=== PATIENT | female | born 1985 | race Caucasian/White ===

== ENCOUNTER 2016-11-14 12:38 | Emergency (ER) | payer BC, MEDICAID ==
[~2016-11-14] VITALS: Ht 165.1 cm; Wt 60.0 kg
[2016-11-14 12:40] VITALS: Ht 165.1 cm; Wt 60.0 kg
--- NOTE | 2016-11-14 13:15 | ERD ---
ER Documentation Chief Complaint Date/Time DATE: 11/14/16 TIME: 13:09 Chief Complaint constipation x 3 days with abdominal pain HPI This is a 31 year-old female who presents to emergency department today complaining of abdominal pain and constipation for the past 3 days. States she also has some rectal pain. Patient states that 5 days ago at [facility] she had a cyst removed from her ovaries and has a scar. Denies any nausea vomiting, fevers or chills, dysuria. ROS All systems reviewed and are negative except as per history of present illness. Medications Home Meds Active Scripts Glycerin* (Glycerin (Adult)*) 1 Each Supp.rect, 1 EACH FL DAILY Y for CONSTIPATION for 10 Days, SUPP.RECT Prov:ERNESTO BRUCE PA-C 11/14/16 Magnesium Citrate* (Citroma*) 300 Ml Soln, 300 ML PO DAILY, #1 BOTTLE Prov:ERNESTO BRUCE PA-C 11/14/16 Polyethylene Glycol* (Miralax*) 17 Gm Powd.pack, 17 GM PO DAILY, #30 Prov:ERNESTO BRUCE PA-C 11/14/16 Allergies Allergies: Coded Allergies: No Known Allergy (Unverified , 11/14/16) PMhx/Soc History of Surgery: Yes (4 days s/p removal of ovarian cyst) Anesthesia Reaction: No Hx Neurological Disorder: No Hx Respiratory Disorders: No Hx Cardiac Disorders: No Hx Psychiatric Problems: No Hx Miscellaneous Medical Probl: No Hx Alcohol Use: No Hx Substance Use: No Hx Tobacco Use: No Smoking Status: Never smoker Physical Exam Vitals Vital Signs Date Time Temp Pulse Resp B/P Pulse Ox O2 Delivery O2 Flow Rate FiO2 11/14/16 12:40 98.5 100 20 120/79 100 Physical Exam Const: No acute distress Head: Atraumatic Eyes: Normal Conjunctiva ENT: Normal External Ears, Nose and Mouth. Neck: Full range of motion..~ No meningismus. Resp: Clear to auscultation bilaterally Cardio: Regular rate and rhythm, no murmurs Abd: Soft, diffuse abdominal tenderness non distended. Normal bowel sounds. Evidence of scar with kevin placed. No erythema or warmth. No drainage noted. Skin: Evidence of scar with kevin placed. No erythema or warmth. No drainage noted. Back: No midline or flank tenderness Ext: No cyanosis, or edema Neur: Awake and alert Psych: Normal Mood and Affect Results 24 hrs Laboratory Tests Test 11/14/16 13:18 Bedside Urine Blood Trace-intact Bedside Urine Glucose (UA) Negative Bedside Urine Ketones (LAB) Negative Bedside Urine Leukocyte Esterase (L Negative Bedside Urine Nitrite (LAB) Negative Bedside Urine Protein (LAB) Negative Bedside Urine pH (LAB) 7.5 Current Medications Medications (Trade) Dose Ordered Sig/Tony Route PRN Reason Start Time Stop Time Status Last Admin Dose Admin Glycerin (Glycerin (Adult)) 1 supp ONCE ONCE FL 11/14/16 13:30 11/14/16 13:31 DC DIAGNOSTIC IMAGING REPORT Patient: OSIEL MAN : 1985 Age: 31 Sex: F MR #: [id number] DOS: 11/14/16 0000 Ordering MD: ERNESTO BRUCE PA-C Location: [facility] Room/Bed: PROCEDURE: XR Abdomen. CLINICAL INDICATION: Abdominal pain status post surgery with constipation TECHNIQUE: AP abdomen x-ray. COMPARISON: None FINDINGS: Nonspecific bowel gas pattern with a moderate amount of stool within the colon. There are no abnormal calcifications overlying the urinary tracts. The osseus structures are unremarkable. Surgical kevin are present in the lower abdomen consistent with the patient's surgical history. IMPRESSION: Nonobstructive bowel gas pattern. Moderate stool in the colon RPTAT: QQ .Sebastien Al MD, MD Date Time Electronically viewed and signed by .Sebastien Al MD, MD on 11/14/2016 13:42 .M/ CC: ERNESTO BRUCE PA-C Procedures/MDM This is a 31-year-old female who presents to the emergency department today complaining of abdominal pain, constipation for the past 3 days and some rectal pain. She states she has not had bowel movement in 3 days. On physical exam patient has evidence of a scar. There is no erythema or warmth or purulent drainage. I have low suspicion for postoperative infection, abscess, perirectal abscess, sepsis or deep space infection. Patient is afebrile and otherwise well-appearing. Did obtain a KUB to rule out obstruction. I also obtained a UA and urine test. UA is negative for infection. test is negative. KUB shows a nonobstructive bowel gas pattern. There is moderate stool in the colon. Did a rectal exam on the patient there is no evidence of hemorrhoids. I also placed a glycerin suppository myself. A moderate amount of stool in the rectal vault. Patient has no nausea or vomiting. She is afebrile and otherwise well- appearing I did have Dr. Goodson evaluated the patient and consideration was made for a CT scan of the risks and benefits were explained to the patient and the patient declined a CT scan at this time and feels that her pain is solely due to constipation. Her wound appears to be healing well and I do have lower suspicion for seroma, postsurgical complications or abscess however I'm unable to rule out out at this time. Other differentials to consider paralytic ileus, mass, diverticulitis, and other acute surgical abdomen. Patient was discharged home on MiraLAX, mag citrate and glycerin suppositories. She was instructed to ambulate more often as well as drink more water. [facility] declined pain medication here in the emergency department as she stated that she did not want the pain medication to cause more constipation. At this time the patient is stable for discharge and outpatient management. Patient should follow up with their PCP in the next 1-2 days. They may return to the emergency department sooner for any persistent or worsening of symptoms. Patient understood and agreed with the plan. I discussed the patient with Dr. Goodson and he is in the agreement with the plan. Was notified prior to discharge that the patient was tachycardiac. An EKG was done and read by Dr. Goodson. Rate [address] elevation. No QT prolongation. Sinus tachycardia. This may be related to patient's pain. There is no evidence for atrial fibrillation, acute NM. Departure Diagnosis: Primary Impression: Constipation Constipation type: unspecified constipation type Qualified Code: K59.00 - Constipation, unspecified constipation type Additional Impression: Abdominal pain Abdominal location: generalized Qualified Code: R10.84 - Generalized abdominal pain Condition: ENRESTO Jimenez PA-C Nov 14, 2016 13:15
[2016-11-14 13:18] LABS: URINE BLOOD (Dip) POC Trace-intact (NEGATIVE)
[2016-11-14] MEDS ORDERED: GLYCERIN (ADULT) SUPP PR ONE (13:30)
--- NOTE | 2016-11-14 13:42 | RADRPT ---
PROCEDURE: XR Abdomen. CLINICAL INDICATION: Abdominal pain status post surgery with constipation TECHNIQUE: AP abdomen x-ray. COMPARISON: None FINDINGS: Nonspecific bowel gas pattern with a moderate amount of stool within the colon. There are no abnormal calcifications overlying the urinary tracts. The osseus structures are unremarkable. Surgical kevin are present in the lower abdomen consistent with the patient's surgical history. IMPRESSION: Nonobstructive bowel gas pattern. Moderate stool in the colon RPTAT: QQ .Sebastien Al MD, Date Time Electronically viewed and signed by .Sebastien Al MD, on 11/14/2016 13:42 .M/
[2016-11-14] MEDS ORDERED: POLY17PO6 PO (14:25)
[2016-11-14] MEDS ORDERED: GLYC1SUP92 PR (14:26)
[2016-11-14] MEDS ORDERED: CITROMA PO (14:26)
[2016-11-14 14:53] VITALS: BP 118/73; PULSE 103; RESP 18; TEMP 99.6
== END 2016-11-14 14:54 | disposition home or self-care (01) ==
LOC: FTE 12:38
DX: K59.00 Constipation, unspecified (principal); R10.84 Generalized abdominal pain
CPT/HCPCS: 74000; 81003; 93005; Z7610